=== PATIENT | female | born 1960 | race Caucasian/White ===

== ENCOUNTER 2016-05-21 15:25 | Emergency (ER) | payer OTHER ==
--- NOTE | 2016-05-21 17:02 | US ---
RT SHOULDER NON VASC COMPARISON: Ultrasound of the right shoulder, 04/17/2016 HISTORY: Patient with large tear of the supraspinatus tendon, now with acute pain and bruising in the right upper arm, clinically a tear of the long head biceps tendon. FINDINGS: Long head biceps tendon: Complete tear. The muscle is retracted approximately 12 cm to the mid right arm at the site of bruising. The short head tendon is intact. Subscapularis tendon: Normal. Supraspinatus tendon: Complete tear. Infraspinatus tendon: Normal. Teres minor tendon: Normal. Infraspinatus and supraspinatus muscles: Normal. Acromioclavicular joint: Normal. Posterior glenohumeral joint and labrum. Normal. Subacromial-subdeltoid bursa: Normal. IMPRESSION: 1. Rupture of the long head biceps tendon. 2. Progression to complete tear of the supraspinatus tendon with retraction. The results were discussed with Casper Tavares MD 05/21/2016 at 16:58
== END 2016-05-21 17:33 | disposition home or self-care (01) ==
LOC: ED 15:25
DX: S46.211A Strain of muscle, fascia and tendon of other parts of biceps, right arm, initial encounter (principal); X58.XXXA Exposure to other specified factors, initial encounter; Y92.9 Unspecified place or not applicable

== ENCOUNTER 2016-07-18 06:28 | Day surgery (SDC) | payer OTHER ==
[2016-07-18] MEDS ORDERED: CEFAZOLIN SODIUM 2 GRAM PREMIX 100 ML IV PRN (06:30)
[2016-07-18] MEDS ORDERED: LACTATED RINGERS 1,000 ML ONE (06:35)
[2016-07-18] MEDS ORDERED: CEFAZOLIN SODIUM 2 GRAM PREMIX 100 ML IV ONE (06:36)
[2016-07-18] MEDS ORDERED: IV START KIT ONE (06:36)
[2016-07-18] MEDS ORDERED: BUPIVACAINE 0.5% (PRES FREE) 30 ML VIAL ONE (07:11)
[2016-07-18] MEDS ORDERED: MIDAZOLAM HCL 1 MG/ML 2ML VIAL ONE ×3 (07:16→08:36)
[2016-07-18] MEDS ORDERED: NERVE BLOCK PROCEDURAL TRAY 1 EACH ONE (07:18)
[2016-07-18] MEDS ORDERED: ROPIVACAINE 0.5% 30 ML VIAL ONE (07:18)
[2016-07-18] MEDS ORDERED: FENTANYL 100 MCG/2 ML VIAL ONE ×3 (08:36→11:39)
[2016-07-18] MEDS ORDERED: ROCURONIUM BROMIDE 10 MG/ML DOSE IV ONE (09:25)
[2016-07-18] MEDS ORDERED: PROPOFOL 20 ML IV ONE (09:25)
[2016-07-18] MEDS ORDERED: DEXAMETHASONE SOD PHOS 4 MG/1 ML VIAL ONE (09:25)
[2016-07-18] MEDS ORDERED: DIPHENHYDRAMINE HCL 50 MG/1 ML VIAL ONE (09:25)
[2016-07-18] MEDS ORDERED: ONDANSETRON 4 MG/2ML 2 ML VIAL ONE (09:25)
[2016-07-18] MEDS ORDERED: LIDOCAINE 2% (PRES FREE) 5 ML VIAL ONE (09:25)
[2016-07-18] MEDS ORDERED: ONDANSETRON 4 MG/2ML 2 ML VIAL IV PRN ×2 (09:40→12:03)
[2016-07-18] MEDS ORDERED: PROMETHAZINE HCL 25 MG/ML VIAL IM PRN (09:40)
[2016-07-18] MEDS ORDERED: HYDROMORPHONE HCL 1 MG/ML SYRINGE IV PRN ×2 (09:40→12:03)
[2016-07-18] MEDS ORDERED: ATROPINE SULFATE 0.4 MG/1 ML VIAL IV PRN (09:40)
[2016-07-18] MEDS ORDERED: FENTANYL 100 MCG/2 ML VIAL IV PRN (09:40)
[2016-07-18] MEDS ORDERED: ON-Q PUMP/ROPIVACAINE 0.2% 450 ML in PREMIX BAG 1 EACH NB PRN (09:40)
[2016-07-18] MEDS ORDERED: NALOXONE HCL 0.4 MG/ML VIAL IV PRN (09:40)
[2016-07-18] MEDS ORDERED: LACTATED RINGERS 1,000 ML IV SCH ×2 (09:45→12:03)
[2016-07-18] MEDS ORDERED: GLYCOPYRROLATE 0.2 MG/ML 1ML VIAL ONE (10:58)
[2016-07-18] MEDS ORDERED: NEOSTIGMINE METHYLSULFATE 1 MG/ML DOSE ONE (10:58)
--- NOTE | 2016-07-18 11:11 | PCMBPN ---
Brief Post Op Note: Date of Procedure: 07/18/16 Start Time: 929 Preoperative Diagnosis: 1. right shoulder rotator cuff tear and long head biceps rupture Postoperative Diagnosis: 1. Same Procedure: right shoulder arthroscopy, biceps debridement and rotator cuff repair with subacromial decompression Surgeon: Delvin Merrill MD Assist: Jorden Mclaughlin Anesthesia: Gerard Turner Findings: full thickness cuff tear; complete rupture of biceps tendon with retraction Condition: stable to PACU Complications: none IV Fluids: 1400 mLs of LR Urine Output: 0 mLs Estimated Blood Loss: 50 mLs Tourniquet Time: 0 Specimens: none Implants: Arthrex biocomposite swivelocks x 5 Drains: none Delvin Merrill MD
--- NOTE | 2016-07-18 12:00 | RAD ---
SHOULDER-RIGHT 1 VIEW HISTORY: Postop right rotator cuff repair. COMPARISONS: 04/04/2016. FINDINGS: A single AP view of the right shoulder was performed demonstrating grossly intact osseous structures. The glenohumeral alignment appears similar to the appearance on prior examination. The acromiohumeral distance is well maintained. Right basilar atelectasis is suggested. IMPRESSION: 1. A limited single view of the right shoulder demonstrating a similar appearance to the appearance on prior exam of 04/04/2016. No acute osseous abnormalities are visualized. 2. Suggested right basilar atelectasis or scarring.
[2016-07-18] MEDS ORDERED: DIPHENHYDRAMINE HCL 50 MG/1 ML VIAL IV PRN (12:03)
[2016-07-18] MEDS ORDERED: OXYCODONE/ACETAMINOPHEN 5/325 MG TABLET PO PRN (12:03)
[2016-07-18] MEDS ORDERED: ACETAMINOPHEN 325 MG TABLET PO PRN (12:03)
[2016-07-18] MEDS ORDERED: OXYCODONE/ACETAMINOPHEN 5/325 MG TABLET ONE (12:53)
--- NOTE | 2016-07-19 11:40 | OP ---
Adithya AKHTAR : 1960 [id number] DATE OF SERVICE: July 18, 2016 PREOPERATIVE DIAGNOSES: Right shoulder rotator cuff tear and long head tendon of the biceps rupture. POSTOPERATIVE DIAGNOSES: Right shoulder rotator cuff tear and long head tendon of the biceps rupture. PROCEDURE PERFORMED: RIGHT SHOULDER ARTHROSCOPY WITH BICEPS DEBRIDEMENT AND ROTATOR CUFF REPAIR WITH SUBACROMIAL DECOMPRESSION. SURGEON: Delvin Merrill M.D. DRILLING MANAGER: Jorden Mclaughlin P.A.-C. ANESTHESIA: Gerard Turner C.R.N.A. SPECIMENS: No material was sent to the laboratory. ESTIMATED BLOOD LOSS: 50 mL. INTRAVENOUS FLUIDS: 1400 mL of crystalloid. TOURNIQUET TIME: None. IMPLANTS: Arthrex BioComposite SwiveLock times five. INDICATIONS: This is a 56-year-old female with persistent right shoulder pain and weakness secondary to a biceps tendon injury and a rotator cuff tear. Her exam and radiographic findings supported these diagnoses. She has failed to respond with a course of nonoperative measures and desires surgical intervention. Risks, benefits and alternatives were discussed and the patient elected to proceed. Informed consent was obtained and documented in the chart. DESCRIPTION OF PROCEDURE: The patient was identified in the pre-operative holding area where she was marked with an indelible marker by the operating surgeon and taken to the operating room shows placed in supine position on the operating room table. General anesthesia was induced and perioperative antibiotics were administered and she had a regional block placed by the anesthesia provider. She was repositioned into a beach chair position. All bony prominences were padded. She was prepped and draped in the usual sterile fashion for surgery. An operative time out was performed and confirmed by all members of the operative team. A standard posterior portal was created and the 30 degree viewing arthroscope was inserted into the shoulder. Diagnostic arthroscopy was performed with the following findings: Intact anterior, posterior, inferior and superior labral structures. She had a rupture of the biceps tendon with retraction out of the joint. She had a large tear that encompassed nearly the full width of the supraspinatus tendon that was retracted back in a U-shaped pattern. The subscapularis, infraspinatus and the teres minor were intact. The chondral surfaces of the humeral head and glenoid were largely intact without significant defects. An anterior portal was created and the 7 mm cannula was inserted. The RF ablator was used to debride back the remaining fibers of the biceps tendon that were wispy and just floating freely from the bicipital tuberosity. The camera was then redirected in the subacromial space. A lateral portal was created. Subacromial bursectomy was performed. Subacromial decompression with acromioplasty was performed. The footprint of the cuff was prepared and a total of five anchors were used to do a knotless SpeedBridge style repair of the cuff re-apposing it back down to its tribal position. Final images were obtained which documented adequate sabianism of cuff function and location and then the camera and instruments were removed from the shoulder. Portal sites were closed with #4-0 Nylon and a sterile dressing of Xeroform, fluffs, web roll and Medipore tape was applied. The patient was placed into a sling. Drapes were removed. The patient was awakened from her anesthesia and extubated in the operating room without difficulty and transferred to a stretcher and taken postoperatively to the postanesthesia care unit in stable condition. There were no observed intraoperative complications during this procedure. Job [id number] Cc: [facility]
--- NOTE | 2016-08-08 10:28 | HP ---
DATE OF CLINIC: 07/13/2016 JERMAIN AKHTAR : 1960 PLANNED PROCEDURE: Right Shoulder Arthroscopic Rotator Cuff Repair and Possible Rotator Cuff Repair DATE OF SURGERY: July 18, 2016 SURGEON: Delvin Merrill M.D. HISTORY OF PRESENT ILLNESS Jermain Akhtar is a 56 year old female. * Medication list reviewed with patient allergy list reviewed with patient. This is a 56-year-old female his right shoulder impingement. She was provided a subacromial steroid injection by Jorden, subsequently had a pop in her shoulder and was seen in the emergency department. Ultrasound at that demonstrated a proximal long head of the biceps tendon rupture along with a complete tear of the supraspinatus which was progressed from a previous ultrasound showing a partial thickness tear. She presents today to discuss ongoing approach to both therapy and overall treatment. She reports that she has pain about 6/10. The arm seems to move a little bit better actually sent her biceps tendon rupture, especially when it comes to things like pronated position of the forearm but she continues to have significant limitations in her right shoulder. She is unable to bowl which is one of her avocations of choice and is limited in the things that she can lift and manipulate with this right here. She is interested in pursuing surgical intervention if we really think that it can restore her to more of her desired functional activities. Again, pain is rated as a 6/10 mostly in the posterior shoulder. After discussion and review of treatment options, both operative and non-operative, she has elected to proceed with surgery and presents today preoperatively. PAST MEDICAL AND SURGICAL HISTORY: No changes to her past medical or surgical history. CURRENT MEDICATION * Michelle Allergy 180 MG Tablet 1 once a day 0 days, 0 refills PAST MEDICAL/SURGICAL HISTORY Reported: No recent change in medical history. LMP: 2009. Medical: Reported numbness and Reported tingling. Surgical / Procedural: Caesarean Section 2002. Other: Screening mammogram was performed 2013. Cervical Pap smear Allergic rhinitis . Procedural: * Documentation of no neoplasm detected during colonoscopy Has not had SOCIAL HISTORY Social history unchanged. Behavioral: Daily tea consumption, current smoker 1/2 pack daily, started smoking age 23-22 yr, and smoking status: Current everyday smoker. Alcohol: Alcohol 1 time a week 3-4 beers and alcohol use beer 1-2 at a time. Home Environment: Lives with spouse. Work: Occupation [employer]. Works as a housekeeping attendant. Has two children. 13 yr old and 33 yr old. 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 ALLERGIES * Sulfur Reaction: Skin Rashes/Hives FAMILY HISTORY 2 children living Mother: lymphoma, HTN, MD age 70s Father: Suicide age 12 yr Brother: HTN, heart issues, ETOH, 50s. Brother: brain anurysm 50s. Older Sister: healthy Younger Sister: recovering drug addict Family medical history Mother: Diabetes, Kidney Disease, Cancer, HBP, Depression REVIEW OF SYSTEMS No recent constitutional symptoms to include fevers and chills. No recent cardiovascular symptoms to include chest pain or palpitations. No recent respiratory symptoms to include shortness of breath or recent infections. PHYSICAL FINDINGS * Vitals taken 07/13/2016 02:23 pm BP-Sitting R 124/86 mmHg Pulse Rate-Sitting 92 bpm Temp-Oral 97.9 F Height 64.5 in Weight 169 lbs 9.6 oz Body Mass Index 28.7 kg/m2 Body Surface Area 1.83 m2 Pain Level 5 Ears, Nose, Throat: * ENT: normal. Lungs: * Clear to auscultation. Cardiovascular: Heart Rate and Rhythm: * Normal. Abdomen: * Normal. Neurological: Motor: * Dominant Hand = Right Hand. Patient is a well-developed, well-nourished female in no acute distress. They are awake, alert and conversant throughout the encounter. CARDIOVASCULAR: Intact peripheral pulses on bilateral upper extremities. No significant edema on inspection of bilateral upper extremities. NEUROLOGIC: Patient had intact coordinated composite motion of the bilateral upper extremities and sensation intact to light touch in all distributions of bilateral upper extremities. PSYCHIATRIC: Patient was oriented to person, place and time and displayed appropriate mood and affect during the encounter. SKIN: Exam of the skin on bilateral upper extremities showed no significant scars, lesions, rashes or masses. FOCUSED MUSCULOSKELETAL EXAM: The patient has tenderness to palpation in the posterior and posterior lateral shoulder. She has positive impingement signs. Negative biceps sites, no evidence of instability in any planes. She has had 5/5 strength in abduction and external rotation. She has range of motion up to about 160 degrees of abduction and about 140 degrees of forward flexion but both of these cause some popping and discomfort. The arm is warm and well perfused distally with intact sensation. TESTS * Test: CBC NO DIFF Report Date: 07/13/2016 WBC 6.8 10*3/mL RBC 4.44 10*6/uL MCH 31.3 pg High MCHC 33.5 g/dL RDW 12.4 % MCV 93.5 fL PLATELET COUNT 381 10*3/mL HCT 41.5 % HGB 13.9 g/L * Test: COMPREHENSIVE METABOLIC PANEL Report Date: 07/13/2016 ALT/SGPT 23 U/L ALBUMIN 4.2 g/dL ALB/GLOB RATIO 1.4 BUN 15 mg/dL BUN/CREAT RATIO 25 High CALCIUM 9.6 mg/dL GLUCOSE 101 mg/dL High CREATININE 0.6 mg/dL SODIUM 137 meq/L POTASSIUM 4.2 meq/L CHLORIDE 106 meq/L CARBON DIOXIDE 24 meq/L ANION GAP 11 meq/L TOT PROTEIN 7.2 g/dL GLOBULIN 3.0 g/dL BILI,TOTAL 0.4 mg/dL AST/SGOT 24 U/L ALK PHOSPHATASE 59 U/L GFR 104 High IMAGING No new x-rays. Ultrasound shows the rupture of the long head of the biceps and shows a full thickness cuff tear of the supraspinatus. ASSESSMENT A 56-year-old female with right shoulder impingement and a full thickness rotator cuff tear. THERAPY * Patient not eligible for fall risk assessment. PLAN * Impingement syndrome of right shoulder Percocet 5-325 MG TABS, Take 1-2 tablets every 4 hours as needed for pain, 14 days, 0 refills * Shoulder arthroscopy with rotator cuff repair and possible biceps tenodesis -right CARE TEAM Elidia Arana, [facility] SURGICAL CONSENT We have discussed surgical options including right shoulder arthroscopic RCR, possible biceps tenodesis and non-operative management. The patient was counseled in detail regarding the diagnosis, treatment options available, prognosis of each treatment option and the potential risks and complications. The risks of surgery include, but are not limited to, anesthetic , neurovascular complications, pulmonary embolism, deep vein thrombosis, wound dehiscence, failure of any or all of the discussed procedures, infection of the joint or surrounding soft tissue, need for revision surgery, chronic pain, limitations in activities of daily living, inability to return to work, and loss of normal range of motion or functional use of the extremity. There is the possibility of failure over time that may require additional operative or non-operative treatment. The patient acknowledged that there are a number of perioperative risks not mentioned here and would still like to proceed. The patient is aware of and understands these risks, and wishes to proceed with the proposed surgical procedure and other procedures as indicated at the time of surgery. We will have the patient see their PCP for a preoperative medical risk assessment. The preoperative instructions were reviewed with the patient and all questions were answered. PB/sg
== END 2016-07-18 13:40 | disposition home or self-care (01) ==
LOC: SDC 06:28
PROVIDERS: ATTEND Orthopaedic Surgery
PROC: 0LM14ZZ Reattachment of Right Shoulder Tendon, Percutaneous Endoscopic Approach (ICD-10-PCS; principal; 2016-07-18)
PROC: 0RNJ4ZZ Release Right Shoulder Joint, Percutaneous Endoscopic Approach (ICD-10-PCS; 2016-07-18)
DX: M75.101 Unspecified rotator cuff tear or rupture of right shoulder, not specified as traumatic (principal); S46.111A Strain of muscle, fascia and tendon of long head of biceps, right arm, initial encounter; Z72.0 Tobacco use; Z72.89 Other problems related to lifestyle; Z88.2 Allergy status to sulfonamides
CPT/HCPCS: 29827; 29826; 73020; J1200; J3010 ×3; J1100; J2795; A9270; J2250 ×3; J2405; J7120; J0690